=== PATIENT | female | born 2000 ===

== ENCOUNTER 2022-06-17 17:24 | Outpatient (CLI) | payer BC ==
[2022-06-17 23:14] VITALS: BP 110/62
== END 2022-06-17 23:29 | disposition home or self-care (01) ==
LOC: TRG 17:24 → APU 17:25 → TRG 23:29
PROVIDERS: ATTEND Obstetrics & Gynecology
DX: O47.03 False labor before 37 completed weeks of gestation, third trimester (principal); Z3A.29 29 weeks gestation of pregnancy
CPT/HCPCS: 36415; 82731

== ENCOUNTER 2022-06-27 10:05 | Outpatient (CLI) | payer BC ==
[2022-06-27] MEDS ORDERED: BETAMET ACET/BETAMET NA PH 6 MG/ML INJ 5 ML MDV IM NR (10:23)
== END 2022-06-27 10:41 | disposition home or self-care (01) ==
LOC: TRG 10:05 → APU 10:06 → TRG 10:41
PROVIDERS: ATTEND Obstetrics & Gynecology
DX: Z34.93 Encounter for supervision of normal pregnancy, unspecified, third trimester (principal); Z3A.30 30 weeks gestation of pregnancy
CPT/HCPCS: 96372; J0702

== ENCOUNTER 2022-08-05 22:39 | Outpatient (CLI) | payer BC ==
[2022-08-05 23:19] VITALS: BP 107/62
== END 2022-08-06 01:38 | disposition home or self-care (01) ==
LOC: TRG 22:39 → APU 22:41 → TRG 08-06 01:38
PROVIDERS: ATTEND Obstetrics & Gynecology Gynecology
DX: O42.90 Premature rupture of membranes, unspecified as to length of time between rupture and onset of labor, unspecified weeks of gestation (principal); Z3A.36 36 weeks gestation of pregnancy
CPT/HCPCS: 36415; 84112

== ENCOUNTER 2022-08-28 23:39 | Inpatient (IN) | payer BC ==
--- NOTE | 2022-08-29 01:11 | History and Physical Report ---
History of Present Illness Date of examination: 08/29/22 Date of admission: 08/29/2022 Chief complaint: Contractions History of present illness: 21-year-old primigravida at 39-5/7 weeks gestation presents to OB triage reporting regular and painful uterine contractions every 3 to 5 minutes apart. There is no vaginal bleeding. There is no leaking fluid. There is good movement. The patient states that her cervix was 5 cm dilated when she was seen at her OB [facility] office yesterday. In OB triage, the cervical exam in 6 cm dilated. The patient is admitted to labor and delivery for management of active labor. Past History Past Medical History: no pertinent history Past Surgical History: no surgical history Family/Genetic History: none Social history: no significant social history - Obstetrical History Expected Date of Delivery: 08/31/22 Actual Gestation: 39 Week(s) 5 Day(s) : 1 Para: 0 Hx # Term Pregnancies: 0 Number of Pregnancies: 0 Spontaneous Abortions: 0 Induced : 0 Number of Living Children: 0 Medications and Allergies Allergies Allergy/AdvReac Type Severity Reaction Status Date / Time No Known Allergies Allergy Verified 06/17/22 18:29 Review of Systems All systems: negative - Vital Signs Vital signs: Vital Signs Pulse Pulse Ox 96 H 94 08/29/22 00:18 08/29/22 00:18 Temp Pulse Resp BP Pulse Ox 98.1 F 91 H 18 120/69 94 08/29/22 00:47 08/29/22 01:06 08/29/22 00:47 08/29/22 00:47 08/29/22 01:06 - Physical Exam Breasts: Positive: normal Cardiovascular: Regular rate Lungs: Positive: Normal air movement Abdomen: Positive: normal appearance Genitourinary (Female): Positive: normal external genitalia Vulva: both: normal Vagina: Positive: normal moisture Uterus: Positive: enlarged Adnexa: both: normal Anus/Rectum: Positive: normal perianal skin Extremities: Positive: normal Deep Tendon Reflex Grade: Normal +2 - Obstetrical FHR: category 1 Uterine Contraction Monitor Mode: External Cervical Dilatation: 6 Cervical Effacement Percentage: 80 station: -2 Uterine Contraction Frequency (min): 5 Results All other labs normal. Ultrasound: pending Assessment and Plan - Patient Problems (1) 39 weeks gestation of Current Visit: Yes Status: Acute Plan to address problem: care is up-to-date at [facility]. The patient is GBS negative. (2) Active labor at term Current Visit: Yes Status: Acute Plan to address problem: This patient is an active labor. Admit to labor and delivery. Expectant management for now.
[2022-08-29] MEDS ORDERED: TERBUTALINE 1 MG/1 ML INJ SUB-Q PRN (01:12)
[2022-08-29] MEDS ORDERED: ACETAMINOPHEN 325 MG TAB PO PRN (01:12)
[2022-08-29] MEDS ORDERED: CARBOPROST TROMETHAMINE 250 MCG/1 ML INJ IM PRN (01:12)
[2022-08-29] MEDS ORDERED: fentaNYL 100 MCG/2 ML INJ IV PRN (01:12)
[2022-08-29] MEDS ORDERED: METHYLERGONOVINE MALEATE 0.2 MG/ML VIAL IM PRN (01:12)
[2022-08-29] MEDS ORDERED: BUTORPHANOL 2 MG/1 ML INJ IV PRN (01:12)
[2022-08-29] MEDS ORDERED: LACTATED RINGERS 1,000 ML IV SCH (01:15)
--- NOTE | 2022-08-29 01:50 | Ultrasound Report ---
ULTRASOUND OBSTETRIC INDICATION / CLINICAL INFORMATION: Contractions. - Clinical Gestational Age (GA) in weeks, days: 39, 5 TECHNIQUE: Transabdominal. COMPARISON: None available. FINDINGS: Single intrauterine . Biparietal Diameter = 8.9 cm = 36, 30 weeks, days Head Circumference = 32.3 cm = 36, 4 weeks, days Abdominal Circumference = 36.2 cm = 40, 1 weeks, days Femur Length = 7.18 cm = 36, 5 weeks, days Average Ultrasound Age (AUA) = 37, 3 weeks, days Heart Rate: 154 beats per minute. Estimated Weight in grams (if calculated): 3515 Position: cephalic. Placenta: Fundal and free of the os. Amniotic Fluid Volume: normal Amniotic Fluid Index (DIANA) in cm (if calculated): 10.5 cm. Maternal Adnexa: No significant abnormality. IMPRESSION: 1. Single, living intrauterine with estimated sonographic age of 37 weeks, 3 days. 2. No significant sonographic abnormality. Signer Name: Everton Christopher MD Signed: 08/29/2022 1:46 AM Workstation Name: [employer]
[2022-08-29] MEDS ORDERED: OXYTOCIN DRIP 30 UNITS/500 ML BAG IV SCH ×2 (02:00→11:00)
[2022-08-29 02:53] LABS: Hematocrit 39.9 % (30.3-42.9); Hemoglobin 13.1 gm/dl (10.1-14.3); Mean Corpuscular HGB Conc 33 % (30-34); Mean Corpuscular Volume 89 fl (79-97); Platelet Count 235 K/mm3 (140-440); Red Blood Count 4.49 M/mm3 (3.65-5.03); Red Cell Distribution Width 13.8 % (13.2-15.2)
--- NOTE | 2022-08-29 08:20 | Progress Note ---
Labor Epidural - Labor Epidural Start Time: 08:03 Stop Time: 08:07 Performed by:: MARLEN LINK Procedure: Epidural Requested for Labor Pain. H&P and PT Chart reviewed and consent obtained. Time out performed and the procedure was explained, all questions answered. Patient was placed in a sitting position with monitors applied. The PTs back was prepped and draped in usual sterile fashion. The Skin was localized with 3 mL of 1% lidocaine at L3-L4. A 17-gauge Touhy epidural needle was advanced to NADER with saline at 7 cm and no blood/CSF was noted via epidural needle. Epidural catheter was advanced to 12 cm. There was negative aspiration for blood and CSF in the catheter and negative response to a test dose of 3 ml 1.5% lidocaine w/ Epi and a sterile dressing was applied Patient tolerated the procedure well and there were no immediate complications noted.
--- NOTE | 2022-08-29 08:20 | Anesthesia Day of Surgery ---
Anesthesia Day of Surgery - Day of Surgery Patient Examined: Yes Patient H&P Reviewed: Yes Patient is NPO: Yes Beta Blockers: No Cardiac Clearance: No Pulmonary Clearance: No Lion's Test: N/A
--- NOTE | 2022-08-29 08:20 | Anesthesia Consultation ---
Anesthesia Consult and Med Hx Date of service: 08/29/22 - Airway Anesthetic Teeth Evaluation: Good ROM Head & Neck: Adequate Mental/Hyoid Distance: Adequate Mallampati Class: Class II Intubation Access Assessment: Probably Good - Pulmonary Exam CTA: Yes - Cardiac Exam Cardiac Exam: RRR - Pre-Operative Health Status ASA Pre-Surgery Classification: ASA2 Proposed Anesthetic Plan: Epidural - Pulmonary Hx Smoking: No Hx Asthma: No Hx Respiratory Symptoms: No SOB: No COPD: No Home Oxygen Therapy: No Hx Pneumonia: No Hx Sleep Apnea: No - Cardiovascular System Hx Hypertension: No Hx Coronary Artery Disease: No Hx Heart Attack/AMI: No Hx Angina: No Hx Percutaneous Transluminal Coronary Angioplasty (PTCA): No Hx Cardia Arrhythmia: No Hx Pacemaker: No Hx Internal Defibrillator: No Hx Valvular Heart Disease: No Hx Heart Murmur: No Hx Peripheral Vascular Disease: No - Central Nervous System Hx Neuromuscular Disorder: No Hx Seizures: No CVA: No Hx Back Pain: No Hx Psychiatric Problems: No - Gastrointestinal Hx Ulcer: No Hx Gastroesophageal Reflux Disease: No - Endocrine Hx Renal Disease: No Hx End Stage Renal Disease: No Hx Cirrhosis: No Hx Liver Disease: No Hx Insulin Dependent Diabetes: No Hx Non-Insulin Dependent Diabetes: No Hx Thyroid Disease: No Hx Hypothyroidism: No Hx Hyperthyroidism: No - Hematic Hx Anemia: No Hx Sickle Cell Disease: No - Other Systems Hx Alcohol Use: No Hx Substance Use: No Hx Cancer: No Hx Obesity: Yes
[2022-08-29] MEDS ORDERED: fentaNYL-BUPIV 2 MCG/ML-0.125% 200 MCG/100 ML BAG EPIDURAL SCH (08:30)
[2022-08-29] MEDS ORDERED: NALOXONE 0.4 MG/1 ML INJ IV PRN (08:30)
[2022-08-29] MEDS ORDERED: ePHEDrine SULFATE 50 MG/1 ML INJ IV PRN (09:00)
--- NOTE | 2022-08-29 09:54 | Progress Note ---
Assessment and Plan A: IUP@ 39 5/7 wks GBS neg P: Continue monitoring [facility] ([facility]) Notify NICU Anticipate Subjective - Subjective Date of service: 08/29/22 Principal diagnosis: IUP@ 39 5/7 wks Patient reports: movement normal, contractions Objective - Vital Signs Vital Signs: Vital Signs - 12hr 08/29/22 08/29/22 08/29/22 00:18 00:23 00:26 Temperature Pulse Rate 96 H 97 H 98 H Respiratory Rate Blood Pressure O2 Sat by Pulse 94 94 94 Oximetry O2 Sat by Pulse Oximetry [ Bilateral] 08/29/22 08/29/22 08/29/22 00:28 00:33 00:38 Temperature Pulse Rate 99 H 89 92 H Respiratory Rate Blood Pressure O2 Sat by Pulse 95 94 93 Oximetry O2 Sat by Pulse Oximetry [ Bilateral] 08/29/22 08/29/22 08/29/22 00:43 00:44 00:47 Temperature 98.1 F Pulse Rate 107 H 97 H 87 Respiratory 18 Rate Blood Pressure 120/69 O2 Sat by Pulse 94 94 95 Oximetry O2 Sat by Pulse Oximetry [ Bilateral] 08/29/22 08/29/22 08/29/22 00:48 00:49 00:53 Temperature Pulse Rate 93 H 88 103 H Respiratory Rate Blood Pressure O2 Sat by Pulse 94 94 95 Oximetry O2 Sat by Pulse Oximetry [ Bilateral] 08/29/22 08/29/22 08/29/22 00:54 00:58 01:01 Temperature Pulse Rate 119 H 109 H 90 Respiratory Rate Blood Pressure O2 Sat by Pulse 94 95 94 Oximetry O2 Sat by Pulse Oximetry [ Bilateral] 08/29/22 08/29/22 08/29/22 01:03 01:06 01:08 Temperature Pulse Rate 95 H 91 H 107 H Respiratory Rate Blood Pressure O2 Sat by Pulse 95 94 94 Oximetry O2 Sat by Pulse Oximetry [ Bilateral] 08/29/22 08/29/22 08/29/22 01:13 01:18 01:23 Temperature Pulse Rate 79 101 H 101 H Respiratory Rate Blood Pressure O2 Sat by Pulse 93 94 94 Oximetry O2 Sat by Pulse Oximetry [ Bilateral] 08/29/22 08/29/22 08/29/22 01:28 01:29 01:33 Temperature Pulse Rate 96 H 97 H 125 H Respiratory Rate Blood Pressure O2 Sat by Pulse 94 94 94 Oximetry O2 Sat by Pulse Oximetry [ Bilateral] 08/29/22 08/29/22 08/29/22 01:36 01:38 01:43 Temperature Pulse Rate 103 H 104 H 90 Respiratory Rate Blood Pressure O2 Sat by Pulse 93 93 91 Oximetry O2 Sat by Pulse Oximetry [ Bilateral] 08/29/22 08/29/22 08/29/22 01:48 01:51 01:53 Temperature Pulse Rate 115 H 113 H 100 H Respiratory Rate Blood Pressure O2 Sat by Pulse 92 93 95 Oximetry O2 Sat by Pulse Oximetry [ Bilateral] 08/29/22 08/29/22 08/29/22 01:58 02:03 02:08 Temperature Pulse Rate 84 103 H 91 H Respiratory Rate Blood Pressure O2 Sat by Pulse 95 94 94 Oximetry O2 Sat by Pulse Oximetry [ Bilateral] 08/29/22 08/29/22 08/29/22 02:09 02:13 02:14 Temperature Pulse Rate 92 H 93 H 93 H Respiratory Rate Blood Pressure O2 Sat by Pulse 94 96 94 Oximetry O2 Sat by Pulse Oximetry [ Bilateral] 08/29/22 08/29/22 08/29/22 02:18 02:23 02:25 Temperature Pulse Rate 95 H 95 H 92 H Respiratory Rate Blood Pressure O2 Sat by Pulse 94 96 94 Oximetry O2 Sat by Pulse Oximetry [ Bilateral] 08/29/22 08/29/22 08/29/22 02:28 02:31 02:32 Temperature Pulse Rate 91 H 86 Respiratory Rate Blood Pressure O2 Sat by Pulse 93 92 Oximetry O2 Sat by Pulse 93 Oximetry [ Bilateral] 08/29/22 08/29/22 08/29/22 02:33 02:38 02:41 Temperature Pulse Rate 85 97 H 86 Respiratory Rate Blood Pressure O2 Sat by Pulse 92 91 94 Oximetry O2 Sat by Pulse Oximetry [ Bilateral] 08/29/22 08/29/22 08/29/22 02:43 02:48 02:53 Temperature Pulse Rate 79 84 90 Respiratory Rate Blood Pressure O2 Sat by Pulse 96 93 94 Oximetry O2 Sat by Pulse Oximetry [ Bilateral] 08/29/22 08/29/22 08/29/22 02:56 02:58 03:03 Temperature Pulse Rate 94 H 120 H 84 Respiratory Rate Blood Pressure O2 Sat by Pulse 94 95 96 Oximetry O2 Sat by Pulse Oximetry [ Bilateral] 08/29/22 08/29/22 08/29/22 03:04 03:08 03:11 Temperature Pulse Rate 86 79 87 Respiratory Rate Blood Pressure O2 Sat by Pulse 94 95 94 Oximetry O2 Sat by Pulse Oximetry [ Bilateral] 08/29/22 08/29/22 08/29/22 03:13 03:18 03:23 Temperature Pulse Rate 96 H 77 92 H Respiratory Rate Blood Pressure O2 Sat by Pulse 95 97 94 Oximetry O2 Sat by Pulse Oximetry [ Bilateral] 08/29/22 08/29/22 08/29/22 03:28 03:31 03:33 Temperature Pulse Rate 83 87 79 Respiratory Rate Blood Pressure O2 Sat by Pulse 94 94 94 Oximetry O2 Sat by Pulse Oximetry [ Bilateral] 08/29/22 08/29/22 08/29/22 03:38 03:43 03:45 Temperature Pulse Rate 84 84 90 Respiratory Rate Blood Pressure O2 Sat by Pulse 93 94 94 Oximetry O2 Sat by Pulse Oximetry [ Bilateral] 08/29/22 08/29/22 08/29/22 03:48 03:53 03:58 Temperature Pulse Rate 87 90 94 H Respiratory Rate Blood Pressure O2 Sat by Pulse 95 93 95 Oximetry O2 Sat by Pulse Oximetry [ Bilateral] 08/29/22 08/29/22 08/29/22 04:01 04:03 04:08 Temperature Pulse Rate 92 H 106 H 112 H Respiratory Rate Blood Pressure O2 Sat by Pulse 94 94 93 Oximetry O2 Sat by Pulse Oximetry [ Bilateral] 08/29/22 08/29/22 08/29/22 04:09 04:13 04:17 Temperature Pulse Rate 91 H 76 71 Respiratory Rate Blood Pressure O2 Sat by Pulse 93 95 94 Oximetry O2 Sat by Pulse Oximetry [ Bilateral] 08/29/22 08/29/22 08/29/22 04:18 04:23 04:27 Temperature Pulse Rate 75 72 84 Respiratory Rate Blood Pressure O2 Sat by Pulse 94 94 94 Oximetry O2 Sat by Pulse Oximetry [ Bilateral] 08/29/22 08/29/22 08/29/22 04:28 04:33 04:38 Temperature Pulse Rate 82 81 80 Respiratory Rate Blood Pressure O2 Sat by Pulse 94 94 94 Oximetry O2 Sat by Pulse Oximetry [ Bilateral] 08/29/22 08/29/22 08/29/22 04:41 04:43 04:48 Temperature Pulse Rate 82 93 H 85 Respiratory Rate Blood Pressure O2 Sat by Pulse 94 95 96 Oximetry O2 Sat by Pulse Oximetry [ Bilateral] 08/29/22 08/29/22 08/29/22 04:53 04:54 05:02 Temperature Pulse Rate 86 88 73 Respiratory Rate Blood Pressure O2 Sat by Pulse 96 94 93 Oximetry O2 Sat by Pulse Oximetry [ Bilateral] 08/29/22 08/29/22 08/29/22 05:03 05:08 05:13 Temperature Pulse Rate 91 H 98 H 87 Respiratory Rate Blood Pressure O2 Sat by Pulse 98 91 95 Oximetry O2 Sat by Pulse Oximetry [ Bilateral] 08/29/22 08/29/22 08/29/22 05:18 05:23 05:24 Temperature Pulse Rate 89 99 H 95 H Respiratory Rate Blood Pressure O2 Sat by Pulse 94 95 94 Oximetry O2 Sat by Pulse Oximetry [ Bilateral] 08/29/22 08/29/22 08/29/22 05:28 05:33 05:36 Temperature Pulse Rate 76 107 H 97 H Respiratory Rate Blood Pressure O2 Sat by Pulse 94 92 94 Oximetry O2 Sat by Pulse Oximetry [ Bilateral] 08/29/22 08/29/22 08/29/22 05:38 05:52 05:53 Temperature Pulse Rate 100 H 90 84 Respiratory Rate Blood Pressure O2 Sat by Pulse 97 93 95 Oximetry O2 Sat by Pulse Oximetry [ Bilateral] 08/29/22 08/29/22 08/29/22 05:58 06:03 06:04 Temperature Pulse Rate 90 81 102 H Respiratory Rate Blood Pressure O2 Sat by Pulse 94 96 94 Oximetry O2 Sat by Pulse Oximetry [ Bilateral] 08/29/22 08/29/22 08/29/22 06:08 06:10 06:13 Temperature Pulse Rate 102 H 88 107 H Respiratory Rate Blood Pressure O2 Sat by Pulse 95 94 95 Oximetry O2 Sat by Pulse Oximetry [ Bilateral] 08/29/22 08/29/22 08/29/22 06:16 06:18 06:21 Temperature Pulse Rate 85 85 84 Respiratory Rate Blood Pressure O2 Sat by Pulse 94 95 94 Oximetry O2 Sat by Pulse Oximetry [ Bilateral] 08/29/22 08/29/22 08/29/22 06:23 06:28 06:32 Temperature Pulse Rate 94 H 75 99 H Respiratory Rate Blood Pressure O2 Sat by Pulse 94 94 94 Oximetry O2 Sat by Pulse Oximetry [ Bilateral] 08/29/22 08/29/22 08/29/22 06:33 06:37 06:38 Temperature Pulse Rate 102 H 81 81 Respiratory Rate Blood Pressure O2 Sat by Pulse 94 94 94 Oximetry O2 Sat by Pulse Oximetry [ Bilateral] 08/29/22 08/29/22 08/29/22 06:43 06:48 06:53 Temperature Pulse Rate 75 74 97 H Respiratory Rate Blood Pressure O2 Sat by Pulse 94 93 93 Oximetry O2 Sat by Pulse Oximetry [ Bilateral] 08/29/22 08/29/22 08/29/22 06:58 07:00 07:03 Temperature Pulse Rate 84 73 93 H Respiratory Rate Blood Pressure O2 Sat by Pulse 93 94 94 Oximetry O2 Sat by Pulse Oximetry [ Bilateral] 08/29/22 08/29/22 08/29/22 07:07 07:08 07:12 Temperature Pulse Rate 77 80 83 Respiratory Rate Blood Pressure O2 Sat by Pulse 94 94 94 Oximetry O2 Sat by Pulse Oximetry [ Bilateral] 08/29/22 08/29/22 08/29/22 07:13 07:18 07:23 Temperature Pulse Rate 90 80 83 Respiratory Rate Blood Pressure O2 Sat by Pulse 95 94 95 Oximetry O2 Sat by Pulse Oximetry [ Bilateral] 08/29/22 08/29/22 08/29/22 07:28 07:32 07:33 Temperature Pulse Rate 92 H 102 H 76 Respiratory Rate Blood Pressure O2 Sat by Pulse 96 94 96 Oximetry O2 Sat by Pulse Oximetry [ Bilateral] 08/29/22 08/29/22 08/29/22 07:38 07:43 07:45 Temperature Pulse Rate 108 H 79 104 H Respiratory Rate Blood Pressure O2 Sat by Pulse 94 98 94 Oximetry O2 Sat by Pulse Oximetry [ Bilateral] 08/29/22 08/29/22 08/29/22 07:48 07:53 07:54 Temperature Pulse Rate 92 H 90 95 H Respiratory Rate Blood Pressure 133/73 O2 Sat by Pulse 98 97 Oximetry O2 Sat by Pulse Oximetry [ Bilateral] 08/29/22 08/29/22 08/29/22 07:55 07:58 08:00 Temperature Pulse Rate 81 99 H 102 H Respiratory Rate Blood Pressure O2 Sat by Pulse 92 96 93 Oximetry O2 Sat by Pulse Oximetry [ Bilateral] 08/29/22 08/29/22 08/29/22 08:03 08:05 08:07 Temperature Pulse Rate 99 H 109 H 96 H Respiratory Rate Blood Pressure 130/76 O2 Sat by Pulse 94 93 Oximetry O2 Sat by Pulse Oximetry [ Bilateral] 08/29/22 08/29/22 08/29/22 08:08 08:11 08:13 Temperature Pulse Rate 93 H 88 91 H Respiratory Rate Blood Pressure O2 Sat by Pulse 94 92 96 Oximetry O2 Sat by Pulse Oximetry [ Bilateral] 08/29/22 08/29/22 08/29/22 08:15 08:18 08:21 Temperature Pulse Rate 88 97 H 96 H Respiratory Rate Blood Pressure 116/60 113/61 O2 Sat by Pulse 100 Oximetry O2 Sat by Pulse Oximetry [ Bilateral] 08/29/22 08/29/22 08/29/22 08:23 08:27 08:28 Temperature Pulse Rate 89 90 82 Respiratory Rate Blood Pressure 104/58 O2 Sat by Pulse 97 100 Oximetry O2 Sat by Pulse Oximetry [ Bilateral] 08/29/22 08/29/22 08/29/22 08:31 08:33 08:38 Temperature Pulse Rate 91 H 89 79 Respiratory Rate Blood Pressure 103/58 104/60 O2 Sat by Pulse 100 100 Oximetry O2 Sat by Pulse Oximetry [ Bilateral] 08/29/22 08/29/22 08/29/22 08:41 08:43 08:46 Temperature Pulse Rate 78 82 71 Respiratory Rate Blood Pressure 102/59 98/55 O2 Sat by Pulse 100 Oximetry O2 Sat by Pulse Oximetry [ Bilateral] 08/29/22 08/29/22 08/29/22 08:48 08:52 08:53 Temperature Pulse Rate 72 73 78 Respiratory Rate Blood Pressure 97/55 O2 Sat by Pulse 99 98 Oximetry O2 Sat by Pulse Oximetry [ Bilateral] 08/29/22 09:19 Temperature 98.3 F Pulse Rate Respiratory Rate Blood Pressure O2 Sat by Pulse Oximetry O2 Sat by Pulse Oximetry [ Bilateral] - Exam Breasts: normal Abdomen: Present: normal appearance, soft, normal bowel sounds Vulva: both: normal Uterus: Present: normal FHR: auscultation normal, category 1 Uterine Contraction Monitor Mode: External Cervical Dilatation: 6 Cervical Effacement Percentage: 80 station: -2 Uterine Contraction Pattern: Irregular Uterine Tone Measurement Phase: Resting Uterine Contraction Intensity: Strong/Firm Extremities: normal - Labs Labs: Abnormal Labs 08/29/22 02:16 WBC 12.2 H Laboratory Results - last 24 hr 08/29/22 08/29/22 02:16 02:16 WBC 12.2 H RBC 4.49 Hgb 13.1 Hct 39.9 MCV 89 MCH 29 MCHC 33 RDW 13.8 Plt Count 235 Blood Type O POSITIVE Antibody Screen Negative
[2022-08-29] MEDS ORDERED: MINERAL OIL 30 ML ORAL LIQD ONE (15:02)
[2022-08-29] MEDS ORDERED: LIDOCAINE-MPF (1%) 10 MG/1 ML VIAL 5 ML INFILTRATI ONE (15:20)
--- NOTE | 2022-08-29 16:36 | Procedure Note ---
OB Delivery Note - Delivery Date of Delivery: 08/29/22 Surgeon: GERARDO DELUCA Estimated blood loss: 300cc - Vaginal Delivery presentation: vertex, compound Delivery position: OA Intrapartum events: meconium Delivery augmentation: rupture of membranes, pitocin Delivery monitor: external FHT, external uterine, internal uterine Route of delivery: Delivery placenta: spontaneous, other (intact) Delivery cord: 3 umbilical vessels Episiotomy: none Delivery laceration: 2nd degree Delivery repair: vicryl Anesthesia: local, epidural Delivery comments: compound presentation (right hand) of a viable female infant in OA position. Infant was placed on mom's chest while cord was clamped x 2 and cut. Imediately afterwards was taken by [facility] nurse for an initial assess 8/9. Cord blood was obtained. Spontaneous delivery of an intact placenta with 3CV. Fundus firm@ U3 with fundal massage and IV Pitocin. An exploration of tears revealed a 2nd degree perineal laceration which was repaired with a 3-[address]-1. QBL 300cc. Infant and mom were left in stable condition with nurse. - A at 1 minute: 8 at 5 minutes: 9 ([id number]) Infant Gender: Female
[2022-08-29] MEDS ORDERED: PROMETHAZINE 25 MG RECT SUPP PR PRN (17:00)
[2022-08-29] MEDS ORDERED: oxyCODONE /ACETAMINOPHEN 5-325MG TAB PO PRN (17:00)
[2022-08-29] MEDS ORDERED: PROMETHAZINE 25 MG TAB PO PRN (17:00)
[2022-08-29] MEDS ORDERED: IBUPROFEN 800 MG TAB PO SCH (17:00)
[2022-08-29] MEDS ORDERED: LANOLIN/ZINC/DIMETHICONE (LANSINOH) 7 GM TP PRN (17:00)
[2022-08-29] MEDS ORDERED: WITCH HAZEL/ GLYCERIN PAD TP PRN (17:00)
[2022-08-29] MEDS ORDERED: diphenhydrAMINE 25 MG CAP PO PRN (17:00)
[2022-08-29] MEDS ORDERED: ONDANSETRON 4 MG/2 ML INJ IV PRN (17:00)
--- NOTE | 2022-08-29 21:36 | Post Anesthesia Evaluation ---
- Post Anesthesia Evaluation Patient Participated: No Airway Patent: Yes Stable Respiratory Function: Yes Nausea/Vomiting: No Temp > 96.8F: Yes Pain Manageable: Yes Adequeate Hydration: Yes Anesthesia Complications: No Block Receding Appropriately: Yes Patient on Ventilator: No
[2022-08-29 22:00] VITALS: BP 100/61
[2022-08-29] MEDS ORDERED: MAGNESIUM HYDROXIDE (MOM) ORAL LIQD UDC PO PRN (22:00)
[2022-08-30] MEDS ORDERED: PRENATAL VIT27-FE FUMARATE-FOLIC ACID VIT TAB PO SCH (10:00)
== END 2022-08-29 23:34 | disposition home or self-care (01) | DRG 807 ==
LOC: TRG 23:39 → LD 23:42 → TRG 08-29 01:12 → OB 08-29 17:43
PROVIDERS: ADMIT Obstetrics & Gynecology Gynecology; ATTEND Obstetrics & Gynecology Gynecology
PROC: 10E0XZZ Delivery of Products of Conception, External Approach (ICD-10-PCS; principal; 2022-08-29)
PROC: 0KQM0ZZ Repair Perineum Muscle, Open Approach (ICD-10-PCS; 2022-08-29)
PROC: 10907ZC Drainage of Amniotic Fluid, Therapeutic from Products of Conception, Via Natural or Artificial Opening (ICD-10-PCS; 2022-08-29)
PROC: 3E0R3BZ Introduction of Anesthetic Agent into Spinal Canal, Percutaneous Approach (ICD-10-PCS; 2022-08-29)
PROC: 00HU33Z Insertion of Infusion Device into Spinal Canal, Percutaneous Approach (ICD-10-PCS; 2022-08-29)
DX: O77.0 Labor and delivery complicated by meconium in amniotic fluid (principal); Z37.0 Single live birth; Z20.822 Contact with and (suspected) exposure to COVID-19; O99.214 Obesity complicating childbirth; Z3A.39 39 weeks gestation of pregnancy; O70.1 Second degree perineal laceration during delivery; O32.6XX0 Maternal care for compound presentation, not applicable or unspecified
CPT/HCPCS: 36415; 76816; 85027; 86850; 86900; 86901; G0378; J3490; J2590; J7120; U0003